=== PATIENT | male | born 1950 | race Caucasian/White ===

== ENCOUNTER → 2018-01-27 | Outpatient (CLI) | payer MEDICARE ==
--- NOTE | 2018-01-27 11:09 | KCIC ---
Examination: Ultrasound abdominal aorta HISTORY: History of abdominal aortic aneurysm screening COMPARISON: None available FINDINGS: The proximal aorta measures 2.2 x 2.4 cm. The mid aorta measures 2.1 x 2.2 cm. The distal aorta measures 1.9 x 1.6 cm. The right iliac artery measures 1.3 cm diameter , left iliac artery measures 1.1 cm in diameter. The velocity in the proximal aorta measures 97 cm/s, mid aorta 62 cm/s, distal aorta 72 cm/s. Minimal atherosclerotic plaque identified throughout the aorta. IMPRESSION: No evidence of abdominal aortic aneurysm. Electronically signed by: Navneet Mcnulty MD (01/27/2018 11:06 AM) [place] [id number]
== END | disposition home or self-care (01) ==
LOC: KCIC US 08:59
PROVIDERS: ATTEND Internal Medicine
DX: Z13.6 Encounter for screening for cardiovascular disorders (principal); I70.0 Atherosclerosis of aorta
CPT/HCPCS: 76770